=== PATIENT | male | born 1930 | race Caucasian/White ===

== ENCOUNTER 2019-08-13 19:27 | Emergency (ER) | payer OTHER ==
[2019-08-13 19:34] VITALS: BP 167/87; PULSE 101; TEMP 98.1; BMI 23.6
[2019-08-13] MEDS ORDERED: cefTRIAXone SODIUM 1 GM VIAL ONE (19:38)
[2019-08-13] MEDS ORDERED: CEFTRIAXONE 1,000 MG in DEXTROSE 5%-WATER - 50 ML IVPB ONE (19:58)
[2019-08-13 20:03] LABS: BASO % 0.1 % (0-2.0); EOS % 0.2 % (0-4.5); HEMATOCRIT 38.8 % (35.4-49); LYMPH % 2.7 % (8-40); MCHC 33.5 g/dl (32.0-35.9); MEAN CELL VOLUME 92.4 fl (80-96); MEAN PLT VOLUME 7.9 fl (7.5-11.1); MONO % 9.9 % (3.8-10.2); NEUT % 87.1 % (42.8-82.8); PLATELET COUNT 175 K/MM3 (134-434); RDW 15.2 % (11.9-15.9); WHITE BLOOD COUNT 14.5 K/mm3 (4.0-10.8)
--- NOTE | 2019-08-13 20:10 | PDOC ---
Documentation entered by Dread Rivas SCRIBE, acting as scribe for Grace Ford MD. Grace Ford MD: This documentation has been prepared by the Evelyn hernández Angel, SCRIBE, under my direction and personally reviewed by me in its entirety. I confirm that the documentation accurately reflects all work, treatment, procedures, and medical decision making performed by me. History of Present Illness - General Chief Complaint: Urinary Problem Stated Complaint: URINARY FREQUENCY, POSSIBLE UTI History Source: Patient Exam Limitations: No Limitations - History of Present Illness Initial Comments: 08/13/19 19:50 The patient is an 88 year old male with a significant past medical history of high blood pressure, pulmonary disease and high cholesterol who presents to the ED with increased urgency and frequency for about 2 days. The patient states he got a nephrostomy tube placed 2 weeks ago and after 3 days took the bag off and is now urinating normally. The patient also states earlier today while he was at lunch with his son his arms started shaking and his hands became bright red. The patient notes feeling more tired than usual lately but has had trouble sleeping. The patient was tested for COVID 2 weeks ago and was negative. The patient denies SOB, fever, any pain in his upper extremities, abdominal pain, dysuria, hematuria or N/V/D. Past History - Medical History Allergies/Adverse Reactions: Allergies Allergy/AdvReac Type Severity Reaction Status Date / Time levofloxacin Allergy Severe Hives Verified 01/13/16 09:39 Penicillins Allergy Intermediate Rash Verified 01/13/16 09:39 Sulfa (Sulfonamide Allergy Intermediate Rash Verified 01/13/16 09:39 Antibiotics) Home Medications: Ambulatory Orders Atorvastatin Ca [Lipitor] 40 mg PO HS 06/02/15 Methotrexate Sodium [Methotrexate] 2.5 mg PO WEEKLY 06/02/15 Acetaminophen [Tylenol .Regular Strength -] 650 mg PO Q4H PRN #0 tablet 01/14/16 Cefuroxime Axetil [Ceftin -] 250 mg PO BID #14 tablet 01/14/16 Diphenhydramine HCl [Benadryl Capsule -] 25 mg PO Q6H PRN #0 capsule 01/14/16 Famotidine [Pepcid] 40 mg PO DAILY #14 tablet 01/14/16 predniSONE [Deltasone -] 10 mg PO ASDIR #1 tab 01/14/16 Cephalexin [Keflex] 500 mg PO TID #21 capsule 08/13/19 Cancer: Yes ([employer]) COPD: No GI Disorders: Yes Disorders: Yes (STENT. S/P BLADDER POLYPECTOMY) HTN: Yes Hypercholesterolemia: Yes - Surgical History Appendectomy: Yes Cholecystectomy: Yes - Psycho-Social/Smoking History Smoking Status: No Smoking History: Never smoked Have you smoked in the past 12 months: No Number of Cigarettes Smoked Daily: 0 Information on smoking cessation initiated: No - Substance Abuse Hx (Audit-C & DAST Scrn) How often the patient has a drink containing alcohol: Never Score: In Men: 4 or > Positive; In Women: 3 or > Positive: 0 Screen Result (Pos requires Nsg. Audit-10AR): Negative In the last yr the pt used illegal drug/Rx for NonMed reason: No Score: Yes response is considered Positive: 0 Screen Result (Positive result requires Nsg. DAST-10): Negative Review of Systems - Review of Systems Able to Perform ROS?: Yes Comments:: 08/13/19 19:55 GENERAL/CONSTITUTIONAL: No fever or chills. No weakness. HEAD, EYES, EARS, NOSE AND THROAT: No change in vision. No ear pain or discharge. No sore throat. CARDIOVASCULAR: No chest pain or shortness of breath. RESPIRATORY: No cough, wheezing, or hemoptysis. GASTROINTESTINAL: No nausea, vomiting, diarrhea or constipation. GENITOURINARY: +Increased urgency and frequency. No dysuria. MUSCULOSKELETAL: No joint or muscle swelling or pain. No neck or back pain. SKIN: +Redness on both hands, cold to the touch. NEUROLOGIC: No headache, vertigo, loss of consciousness, or change in strength/sensation. ENDOCRINE: No increased thirst. No abnormal weight change. HEMATOLOGIC/LYMPHATIC: No anemia, easy bleeding, or history of blood clots. ALLERGIC/IMMUNOLOGIC: No hives or skin allergy. *Physical Exam - Vital Signs Last Vital Signs Temp Pulse Resp BP Pulse Ox 98.1 F 101 H 18 167/87 98 08/13/19 19:31 08/13/19 19:31 08/13/19 19:31 08/13/19 19:31 08/13/19 19:31 - Physical Exam 08/13/19 20:05 GENERAL: Awake, alert, and fully oriented, in no acute distress HEAD: No signs of trauma EYES: PERRLA, EOMI, sclera anicteric, conjunctiva clear ENT: Auricles normal inspection, hearing grossly normal, nares patent, oropharynx clear without exudates. Moist mucosa NECK: Normal ROM, supple, no lymphadenopathy, JVD, or masses LUNGS: Breath sounds equal, clear to auscultation bilaterally. No wheezes, and no crackles HEART: Regular rate and rhythm, normal S1 and S2, no murmurs, rubs or gallops ABDOMEN: No tenderness to palpation or percussion in the bilateral flanks. Soft, nontender, normoactive bowel sounds. No guarding, no rebound. No masses BACK: +Nephrostomy tube on left side, irritation underneath clear plastic dressing. No surrounding redness, swelling or warmth. No midline tenderness. EXTREMITIES: +Redness in hands bilaterally, not hot to the touch or edematous. No peripheral edema in the upper extremities. Normal range of motion, no edema. No clubbing or cyanosis. No cords or tenderness NEUROLOGICAL: Cranial nerves II through XII grossly intact. Normal speech, normal gait SKIN: Warm, Dry, normal turgor, no rashes or lesions noted. ED Treatment Course - LABORATORY CBC & Chemistry Diagram: 08/13/19 19:58 08/13/19 19:47 Discharge - Discharge Information Problems reviewed: Yes Clinical Impression/Diagnosis: UTI (urinary tract infection) Condition: Stable Disposition: HOME - Admission No - Additional Discharge Information Prescriptions: Cephalexin [Keflex] 500 mg PO TID #21 capsule - Follow up/Referral - Patient Discharge Instructions Patient Printed Discharge Instructions: DI for Urinary Tract Infection (UTI) - Post Discharge Activity
[2019-08-13 20:11] LABS: AMORP URATES 1+ /hpf (NONE SEEN); EPITHELIAL CELLS FEW /hpf
[2019-08-13 20:18] LABS: ALBUMIN 3.2 g/dl (3.4-5.0); BILIRUBIN,TOTAL 0.9 mg/dl (0.2-1); CALCIUM 9.2 mg/dl (8.5-10); CREATININE 2.9 mg/dl (0.55-1.3); POTASSIUM 4.5 mmol/L (3.5-5.1); TOT PROT 6.2 g/dl (6.4-8.2)
== END 2019-08-13 20:10 | disposition home or self-care (01) ==
LOC: JER 19:27 → FER 19:27
DX: N39.0 Urinary tract infection, site not specified (principal)
CPT/HCPCS: 36415; 80053; 81003; 81015; 85025; 87086; 87186; 99284-25